=== PATIENT | male | born 1945 | race Caucasian/White ===

== ENCOUNTER → 2019-01-03 | Outpatient (CLI) | payer OTHER ==
[~2019-01-03] MED LIST: ALBU90OI INH; AMIT50; AMLO10 PO; AMLODIPINE PO; ASCO500 PO; ATOR10 PO; ATOR20 PO; AZIT250 PO; B Complex1 EAC2 PO; BUPR150ER PO; BUSP10 PO; BUSP15 PO; CALCAVITD PO; CLON.1 PO; CLON.5 PO; CLON1 PO; DOC250 PO; DULO60 PO; Desyrel150 MG PO; ESCI10 PO; FERR325 PO; FOLI1 PO; GLIM4 PO; HYDACE5 PO; HYDCHL12.5 PO; HYDHCL25 PO; IBUP200 PO; Juven1 EACH PO; LEVO750 PO; LISI5 PO; MAGCIT300 PO; METF500 PO; METO25ER PO; MIRT30 PO; MUPI2TO TOP; NAPR500 PO; NAPROXEN; OMEP20ER PO; OMEPRAZOLE20 MG PO; Prinivil10 MG PO; RANI150 PO; RISP2 PO; ROPI1 PO; Ropinirole HCl1 MG PO; TAMS.4ER PO; THIA100 PO; TRAZ50 PO; Trazodone HCl300 MG PO; ZINC220 PO; [UNRECOGNIZED DRUG - REMARK]
[2019-01-04 10:30] LABS: Adenovirus F 40/41 Not Detected (NOT DETECT); Astrovirus Not Detected (NOT DETECT); Campylobacter Sp Not Detected (NOT DETECT); Cryptosporidium Not Detected (NOT DETECT); Cyclospora Cayetanensis Not Detected (NOT DETECT); E. Coli O157 Not Detected (NOT DETECT); Entamoeba Histolytica Not Detected (NOT DETECT); Enteroaggregative E. coli-EAEC Not Detected (NOT DETECT); Enteropathogenic E. coli-EPEC Not Detected (NOT DETECT); Enterotoxigenic E. coli-ETEC Not Detected (NOT DETECT); Giardia Lamblia Not Detected (NOT DETECT); Norovirus GI/GII Not Detected (NOT DETECT); Plesiomonas Shigelloides Not Detected (NOT DETECT); Rotavirus A Not Detected (NOT DETECT); Salmonella Sp Not Detected (NOT DETECT); Sapovirus Not Detected (NOT DETECT); Shiga Toxin-prod E. coli-STEC Not Detected (NOT DETECT); Shigella/Enteroin E. coli-EIEC Not Detected (NOT DETECT); Vibrio Cholerae Not Detected (NOT DETECT); Vibrio Sp Not Detected (NOT DETECT); Yersinia Enterocolitica Not Detected (NOT DETECT)
== END ==
LOC: LAB 12:00 → LAB SHORT 12:00
PROVIDERS: Internal Medicine Gastroenterology
DX: R19.7 Diarrhea, unspecified (principal)
CPT/HCPCS: 87507

== ENCOUNTER 2019-01-08 08:03 | Day surgery (SDC) | payer OTHER ==
[~2019-01-08] VITALS: Ht 167.6 cm; Wt 90.1 kg
[~2019-01-08 08:03] MED LIST changes: -BUPR150ER PO; -CLON.5 PO; -ESCI10 PO; -OMEPRAZOLE20 MG PO; -Prinivil10 MG PO; -Ropinirole HCl1 MG PO; -Trazodone HCl300 MG PO
--- NOTE | 2019-01-08 08:46 | NUR ---
Ambulatory in Day Surgery History, Chart, Medications and Allergies reviewed before start of procedure.PT IS POOR HISTORIAN.Lungs clear T/O to Auscultation. Patient confirms NPO status and agrees with scheduled surgery. Patient States Post-Procedure ride home has been arranged.[id number]. 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
--- NOTE | 2019-01-08 09:50 | NUR ---
01/08/19 0924 Ellie Flores History, Chart, Medications and Allergies reviewed before start of procedure.PATIENT DETERMINED TO BE ASA APPROPRIATE FOR PROPOFOL SEDATION PRIOR TO START OF PROCEDURE BY .MONITOR INTACT WITH CONTINUOUS PULSE OXIMETRY AND INTERMITTENT BP.3-LEAD EKG REVIEWED WITH PHYSICIAN PRIOR TO START OF PROCEDURE.O2 VIA N/C INTACT THROUGHOUT SEDATION/PROCEDURE.
--- NOTE | 2019-01-08 10:33 | NUR ---
Discharge instructions reviewed with patient. Patient verbalizes understanding. Copy given to patient to take home. Patient States Post-Procedure ride home has been arranged. Discharged via wheelchair to private car for ride home.
[2019-03-29] MEDS ORDERED: BUPR150ER PO (10:28)
[2019-03-29] MEDS ORDERED: OMEPRAZOLE20 MG PO (10:30)
[2019-03-29] MEDS ORDERED: Ropinirole HCl1 MG PO (10:30)
[2019-03-29] MEDS ORDERED: Prinivil10 MG PO (10:31)
[2019-03-29] MEDS ORDERED: Trazodone HCl300 MG PO (10:31)
[2019-03-29] MEDS ORDERED: GLIM4 PO (10:31)
[2019-03-29] MEDS ORDERED: TAMS.4ER PO (10:32)
[2019-03-29] MEDS ORDERED: METF500 PO (10:32)
[2019-03-29] MEDS ORDERED: CLON.5 PO (10:33)
[2019-03-29] MEDS ORDERED: ESCI10 PO (10:33)
== END 2019-01-08 23:25 | disposition home or self-care (01) ==
LOC: ORSCMMR 08:03 → ORD 09:00 → ORSCMMR 09:00
PROVIDERS: Internal Medicine Gastroenterology
PROC: 0DB48ZX Excision of Esophagogastric Junction, Via Natural or Artificial Opening Endoscopic, Diagnostic (ICD-10-PCS; principal; 2019-01-08 09:00)
PROC: 0DB98ZX Excision of Duodenum, Via Natural or Artificial Opening Endoscopic, Diagnostic (ICD-10-PCS; principal; 2019-01-08 09:00)
PROC: 0DB58ZX Excision of Esophagus, Via Natural or Artificial Opening Endoscopic, Diagnostic (ICD-10-PCS; principal; 2019-01-08 09:00)
PROC: 0DB68ZX Excision of Stomach, Via Natural or Artificial Opening Endoscopic, Diagnostic (ICD-10-PCS; principal; 2019-01-08 09:00)
DX: R11.2 Nausea with vomiting, unspecified (principal); R19.7 Diarrhea, unspecified; K21.0 Gastro-esophageal reflux disease with esophagitis; E11.9 Type 2 diabetes mellitus without complications; I10 Essential (primary) hypertension; F32.9 Major depressive disorder, single episode, unspecified
CPT/HCPCS: 82947; 88305; 88342; J2704; J7120; J7799

== ENCOUNTER 2019-04-02 08:06 | Day surgery (SDC) | payer OTHER ==
[~2019-04-02] VITALS: Ht 167.6 cm; Wt 90.9 kg
[~2019-04-02 08:06] MED LIST changes: +BUPR150ER PO; +CLON.5 PO; +ESCI10 PO; +OMEPRAZOLE20 MG PO; +Prinivil10 MG PO; +Ropinirole HCl1 MG PO; +Trazodone HCl300 MG PO
--- NOTE | 2019-04-02 09:04 | NUR ---
04/02/19 0903 Riky Oakes PATIENT DETERMINED TO BE ASA APPROPRIATE FOR PROPOFOL SEDATION PRIOR TO START OF PROCEDURE BY 3-LEAD EKG REVIEWED WITH PHYSICIAN PRIOR TO START OF PROCEDURE.Patient to ENDO 1History, Chart, Medications and Allergies reviewed before start of procedure.MONITOR INTACT WITH CONTINUOUS PULSE OXIMETRY AND INTERMITTENT BP.O2 VIA N/C INTACT THROUGHOUT SEDATION/PROCEDURE.
--- NOTE | 2019-04-02 10:19 | NUR ---
Discharge instructions reviewed with patient. Patient verbalizes understanding. Copy given to patient to take home. Discharged via wheelchair to private car for ride home.
== END 2019-04-02 22:49 | disposition home or self-care (01) ==
LOC: ORSCMMR 08:06 → ORD 09:00 → ORSCMMR 22:49
PROVIDERS: Internal Medicine Gastroenterology
PROC: 0DBH8ZX Excision of Cecum, Via Natural or Artificial Opening Endoscopic, Diagnostic (ICD-10-PCS; principal; 2019-04-02 09:00)
PROC: 0DBE8ZX Excision of Large Intestine, Via Natural or Artificial Opening Endoscopic, Diagnostic (ICD-10-PCS; principal; 2019-04-02 09:00)
DX: R19.7 Diarrhea, unspecified (principal); Z86.010 Personal history of colon polyps; D12.0 Benign neoplasm of cecum; K57.30 Diverticulosis of large intestine without perforation or abscess without bleeding; C91.90 Lymphoid leukemia, unspecified not having achieved remission; K21.9 Gastro-esophageal reflux disease without esophagitis; Z79.899 Other long term (current) drug therapy; Z87.891 Personal history of nicotine dependence
CPT/HCPCS: 82947; 88305; J2704; J7120

== ENCOUNTER → 2020-05-04 | Outpatient (CLI) | payer OTHER | LOC: LAB SHORT 08:06 | DX: B35.1 Tinea unguium (principal); L60.2 Onychogryphosis | CPT/HCPCS: 88304 ==

== ENCOUNTER 2021-01-03 16:10 | Emergency (ER) | payer OTHER ==
[~2021-01-03] VITALS: Ht 167.6 cm; Wt 106.1 kg
== END 2021-01-03 16:39 | disposition home or self-care (01) ==
LOC: ER 16:10
DX: S00.03XA Contusion of scalp, initial encounter (principal); I10 Essential (primary) hypertension; F17.220 Nicotine dependence, chewing tobacco, uncomplicated; Z79.899 Other long term (current) drug therapy; W18.30XA Fall on same level, unspecified, initial encounter
CPT/HCPCS: 99283

== ENCOUNTER → 2021-05-05 | Outpatient (CLI) | payer OTHER ==
[2021-05-05 17:38] LABS: Appearance, Urine Clear (Clear); Bilirubin, Urine Neg (Neg); Blood, Urine Neg (Neg); Color, Urine Yellow (P-Yellow); Glucose Qualitative, Urine 4+ (Neg); Ketones, Urine Neg (Neg); Leukocyte Esterase, Urine Neg (Neg); Nitrite, Urine Neg (Neg); Protein, Urine Neg (Neg); Urobilinogen, Urine NORM (Normal)
== END ==
LOC: LAB SHORT 15:10 → LAB 15:10
PROVIDERS: Physician Assistant Medical
DX: N39.0 Urinary tract infection, site not specified (principal)
CPT/HCPCS: 81003

== ENCOUNTER → 2021-06-21 | Outpatient (CLI) | payer OTHER ==
[2021-06-21 20:03] LABS: Microalb/Creat Ratio UR, Rand 50.992 mg/g (0.000-30.000); Microalbumin, Random Urine 61.7 mg/L (0.000-20.000)
== END ==
LOC: LAB SHORT 16:58
PROVIDERS: Family Medicine
DX: E11.311 Type 2 diabetes mellitus with unspecified diabetic retinopathy with macular edema (principal)
CPT/HCPCS: 82043; 82570

== ENCOUNTER → 2022-03-17 | Outpatient (CLI) | payer OTHER ==
[2022-03-17 15:27] LABS: Appearance, Urine Clear (Clear); Bilirubin, Urine Neg (Neg); Blood, Urine Neg (Neg); Color, Urine Yellow (P-Yellow); Glucose Qualitative, Urine 4+ (Neg); Ketones, Urine Neg (Neg); Leukocyte Esterase, Urine Neg (Neg); Nitrite, Urine Neg (Neg); Protein, Urine Neg (Neg); Urobilinogen, Urine NORM (Normal)
== END | disposition home or self-care (01) ==
LOC: LAB SHORT 13:50 → LAB 13:50
PROVIDERS: Family Medicine
DX: N39.0 Urinary tract infection, site not specified (principal)
CPT/HCPCS: 81003

== ENCOUNTER → 2022-05-25 | Outpatient (CLI) | payer OTHER ==
[2022-05-25 12:02] LABS: Source, Urine Voided
[2022-05-25 12:17] LABS: Appearance, Urine Clear (Clear); Bilirubin, Urine Neg (Neg); Blood, Urine Neg (Neg); Color, Urine Yellow (P-Yellow); Glucose Qualitative, Urine 4+ (Neg); Ketones, Urine Neg (Neg); Leukocyte Esterase, Urine Neg (Neg); Nitrite, Urine Neg (Neg); Protein, Urine Neg (Neg); Specific Gravity, Urine 1.015 (1.003-1.022); Urobilinogen, Urine NORM (Normal)
== END ==
LOC: RAD SHORT 10:50 → LAB 10:50
PROVIDERS: Family Medicine
DX: R15.9 Full incontinence of feces (principal); N39.0 Urinary tract infection, site not specified
CPT/HCPCS: 81003

== ENCOUNTER → 2022-11-16 | Outpatient (CLI) | payer OTHER ==
[2022-11-16 15:14] LABS: BASOPHILS ABSOLUTE AUTO 0.07 K/mm3 (0.00-0.23); BASOPHILS PERCENT AUTO 1 % (0-2); EOSINOPHILS ABSOLUTE AUTO 0.33 K/mm3 (0.00-0.68); EOSINOPHILS PERCENT AUTO 4 % (0-6); Hematocrit 39.3 % (37.0-53.0); Hemoglobin 12.3 g/dL (13.5-17.5); IMMATURE GRAN ABSOLUTE AUTO 0.19 K/mm3 (0.00-0.10); IMMATURE GRAN PERCENT AUTO 2 % (0-1); LYMPHOCYTES ABSOLUTE AUTO 1.88 K/mm3 (0.84-5.20); LYMPHOCYTES PERCENT AUTO 22 % (21-46); MONOCYTES ABSOLUTE AUTO 0.86 K/mm3 (0.16-1.47); MONOCYTES PERCENT AUTO 10 % (4-13); Mean Corpuscular HGB 25.8 pg (26.0-34.0); Mean Corpuscular HGB Conc 31.3 g/dL (31.5-36.5); Mean Corpuscular Volume 83 fL (80-100); Mean Platelet Volume 10.2 fL (9.1-12.4); NEUTROPHILS ABSOLUTE AUTO 5.07 K/mm3 (1.96-9.15); NEUTROPHILS PERCENT AUTO 60 % (41-73); Platelet Count 337 K/mm3 (150-400); RDW Coefficient Variation 15.5 % (11.7-14.2); RDW Standard Deviation 46.8 fL (35.1-46.3); Red Blood Cell Count 4.76 M/mm3 (4.30-5.90)
[2022-11-16 16:32] LABS: Albumin, Blood 3.3 g/dL (3.4-5.0); Bilirubin, Total 0.1 mg/dL (0.1-1.0); Bun/Creatinine Ratio 19.1 (12.0-20.0); Calcium, Blood 9.3 mg/dL (8.5-10.1); Creatinine, Blood 1.41 mg/dL (0.60-1.20); Globulin, Blood 3.3 g/dL (2.2-4.0); Potassium, Blood 4.5 mmol/L (3.5-5.5); Total Protein, Blood 6.6 g/dL (6.4-8.2)
== END | disposition home or self-care (01) ==
LOC: LAB 14:41 → LAB SHORT 14:41
PROVIDERS: Internal Medicine Hematology & Oncology
DX: C82.00 Follicular lymphoma grade I, unspecified site (principal)
CPT/HCPCS: 80053; 85025

== ENCOUNTER 2022-11-30 15:28 | Inpatient (IN) | payer OTHER ==
[~2022-11-30] VITALS: Ht 167.6 cm; Wt 94.0 kg
[2022-11-30] MEDS ORDERED: ATOR10 PO (15:53)
[2022-11-30] MEDS ORDERED: GLIM4 PO (15:53)
[2022-11-30] MEDS ORDERED: FERSU300 PO (15:54)
[2022-11-30] MEDS ORDERED: CLON.5 PO (15:54)
[2022-11-30] MEDS ORDERED: TAMS.4ER PO (15:54)
[2022-11-30] MEDS ORDERED: ONDA4 PO (15:54)
[2022-11-30] MEDS ORDERED: BUPR150ER PO (15:54)
[2022-11-30] MEDS ORDERED: METO25ER PO (15:55)
[2022-11-30] MEDS ORDERED: TRAZ150T57 PO (15:55)
[2022-11-30] MEDS ORDERED: Prinivil10 MG PO (15:55)
[2022-11-30] MEDS ORDERED: AMLO10 PO (15:55)
[2022-11-30] MEDS ORDERED: METF500C PO (15:55)
[2022-11-30] MEDS ORDERED: ROPI1 PO (15:56)
[2022-11-30 16:05] LABS: BASOPHILS ABSOLUTE AUTO 0.03 K/mm3 (0.00-0.23); BASOPHILS PERCENT AUTO 0 % (0-2); EOSINOPHILS ABSOLUTE AUTO 0.19 K/mm3 (0.00-0.68); EOSINOPHILS PERCENT AUTO 2 % (0-6); Hematocrit 40.7 % (37.0-53.0); Hemoglobin 12.7 g/dL (13.5-17.5); IMMATURE GRAN ABSOLUTE AUTO 0.14 K/mm3 (0.00-0.10); IMMATURE GRAN PERCENT AUTO 2 % (0-1); LYMPHOCYTES ABSOLUTE AUTO 1.35 K/mm3 (0.84-5.20); LYMPHOCYTES PERCENT AUTO 16 % (21-46); MONOCYTES ABSOLUTE AUTO 1.02 K/mm3 (0.16-1.47); MONOCYTES PERCENT AUTO 12 % (4-13); Mean Corpuscular HGB 25.7 pg (26.0-34.0); Mean Corpuscular HGB Conc 31.2 g/dL (31.5-36.5); Mean Corpuscular Volume 82 fL (80-100); Mean Platelet Volume 10.6 fL (9.1-12.4); NEUTROPHILS ABSOLUTE AUTO 5.96 K/mm3 (1.96-9.15); NEUTROPHILS PERCENT AUTO 69 % (41-73); Platelet Count 266 K/mm3 (150-400); RDW Coefficient Variation 15.8 % (11.7-14.2); RDW Standard Deviation 47.7 fL (35.1-46.3); Red Blood Cell Count 4.95 M/mm3 (4.30-5.90); White Blood Cell Count 8.69 K/mm3 (4.00-11.30)
[2022-11-30 16:19] LABS: Alanine Aminotransfer (ALT/SGP 22 U/L (12-78); Albumin, Blood 3.2 g/dL (3.4-5.0); Albumin/Globulin Ratio 0.9 (0.8-1.8); Alk Phos 103 U/L (50-136); Anion Gap 3 mmol/L (6-16); Aspartate Aminotrans (AST/SGOT 18 U/L (12-37); Bilirubin, Total <0.1 mg/dL (0.1-1.0); Blood Urea Nitrogen 29 mg/dL (8-24); Bun/Creatinine Ratio 16.1 (12.0-20.0); CO2, Blood 29 mmol/L (21-32); Calcium, Blood 9.1 mg/dL (8.5-10.1); Chloride, Blood 104 mmol/L (98-108); Globulin, Blood 3.7 g/dL (2.2-4.0); Glomerular Filtration Rate 39 (60-); Glucose, Blood 144 mg/dL (70-99); Potassium, Blood 3.9 mmol/L (3.5-5.5); Sodium, Blood 136 mmol/L (136-145); Total Protein, Blood 6.9 g/dL (6.4-8.2)
[2022-11-30 17:01] LABS: Magnesium, Blood 2.2 mg/dL (1.6-2.4); Uric Acid, Blood 6.8 mg/dL (3.5-7.2)
[2022-11-30 18:21] LABS: Influenza A, PCR NEGATIVE (NEGATIVE); Influenza B, PCR NEGATIVE (NEGATIVE); Resp Syncytial Virus, PCR NEGATIVE (NEGATIVE)
[2022-11-30 19:55] LABS: SARS-Cov-2 (COVID-19) PCR, MMC POSITIVE (NEGATIVE)
[2022-11-30] MEDS ORDERED: ABILIFY MYCITE5 M1 PO (20:09)
[2022-11-30] MEDS ORDERED: HYDCHL25 PO (20:10)
[2022-11-30] MEDS ORDERED: VENL150ER PO (20:10)
[2022-11-30] MEDS ORDERED: GLIP10 PO (20:10)
[2022-11-30] MEDS ORDERED: JARDIANCE25 MG PO (20:10)
[2022-11-30 20:52] VITALS: BP 128/71
[2022-11-30 20:57] LABS: U Amphetamine Screen Not Detected; U Barbituate Screen Not Detected; U Benzodiazapine Screen Not Detected; U Cocaine Screen Not Detected; U Methadone Screen Not Detected; U Methamphetamine Screen Not Detected; U Opiates Screen DETECTED; U Phencyclidine Screen Not Detected
[2022-11-30 20:58] LABS: U Buprenorphine Screen Not Detected; U Cannabinoids Screen Not Detected; U Oxycodone Screen Not Detected; U Propoxyphene Screen Not Detected
[2022-11-30 21:08] LABS: Adenovirus Not Detected (NOT DETECT); Bordetella pertussis Not Detected (NOT DETECT); Chlamydophila pneumoniae Not Detected (NOT DETECT); Coronavirus 229E Not Detected (NOT DETECT); Coronavirus HKU1 Not Detected (NOT DETECT); Coronavirus NL63 Not Detected (NOT DETECT); Coronavirus OC43 Not Detected (NOT DETECT); Human Metapneumovirus Not Detected (NOT DETECT); Human Rhinovirus/Enterovirus Not Detected (NOT DETECT); Influenza A/2009-H1 Not Detected (NOT DETECT); Influenza A/H1 Not Detected (NOT DETECT); Influenza A/H3 Not Detected (NOT DETECT); Influenza B Not Detected (NOT DETECT); Mycoplasma pneumoniae Not Detected (NOT DETECT); Parainfluenza Virus 1 Not Detected (NOT DETECT); Parainfluenza Virus 2 Not Detected (NOT DETECT); Parainfluenza Virus 3 Not Detected (NOT DETECT); Parainfluenza Virus 4 Not Detected (NOT DETECT); Respiratory Syncytial Virus Not Detected (NOT DETECT); SARS-Cov-2 (COVID-19), BioFire Not Detected (NOT DETECT)
[2022-12-01 04:27] VITALS: BP 134/73
--- NOTE | 2022-12-01 04:38 | NUR ---
SHIFT SUMMARY ADMITTED FROM ER THIS SHIFT FOR ACUTE RESPIRATORY FAILURE. FULL CODE. COVID+. HANDOFF RECEIVED FROM TAX REPRESENTATIVEGIOVANNA ALBRIGHT. PT ARRIVED TO FLOOR VIA GURNEY. PERSONAL POSSESSIONS WITH PT. ER DID SEND UP ANOTHER BELONGINGS BAG OF PERSONAL BELONGINGS LATER AFTER PT ARRIVED TO FLOOR. PT ORIENTED TO UNIT. CALL BUTTON IN REACH. REMDESIVIR AND DECADRON GIVEN ORDERED. PT IS ON 3 LPM O2 HERE, RA @ [facility] WHERE HE LIVES. HE IS INCONTINENT/CONTINENT. ADA DIET. AC CBG'S. HX OF PROSTATE NEOPLASM, CLL, RIGHT BRAIN MASS - OUTPT TX AT [facility]. HE HAS BEEN ABLE TO MAKE HIS NEEDS KNOWN TO US.
[2022-12-01 05:03] LABS: BASOPHILS ABSOLUTE AUTO 0.02 K/mm3 (0.00-0.23); BASOPHILS PERCENT AUTO 0 % (0-2); EOSINOPHILS ABSOLUTE AUTO 0.01 K/mm3 (0.00-0.68); EOSINOPHILS PERCENT AUTO 0 % (0-6); Hematocrit 37.5 % (37.0-53.0); Hemoglobin 11.8 g/dL (13.5-17.5); IMMATURE GRAN ABSOLUTE AUTO 0.12 K/mm3 (0.00-0.10); IMMATURE GRAN PERCENT AUTO 2 % (0-1); LYMPHOCYTES ABSOLUTE AUTO 0.94 K/mm3 (0.84-5.20); LYMPHOCYTES PERCENT AUTO 15 % (21-46); MONOCYTES ABSOLUTE AUTO 0.22 K/mm3 (0.16-1.47); MONOCYTES PERCENT AUTO 4 % (4-13); Mean Corpuscular HGB 25.8 pg (26.0-34.0); Mean Corpuscular HGB Conc 31.5 g/dL (31.5-36.5); Mean Corpuscular Volume 82 fL (80-100); Mean Platelet Volume 10.5 fL (9.1-12.4); NEUTROPHILS ABSOLUTE AUTO 4.79 K/mm3 (1.96-9.15); NEUTROPHILS PERCENT AUTO 79 % (41-73); Platelet Count 231 K/mm3 (150-400); RDW Coefficient Variation 15.7 % (11.7-14.2); RDW Standard Deviation 47.1 fL (35.1-46.3); Red Blood Cell Count 4.58 M/mm3 (4.30-5.90)
[2022-12-01 05:59] LABS: Albumin, Blood 2.8 g/dL (3.4-5.0); Albumin/Globulin Ratio 0.9 (0.8-1.8); Bilirubin, Total 0.4 mg/dL (0.1-1.0); Bun/Creatinine Ratio 19.2 (12.0-20.0); Calcium, Blood 8.4 mg/dL (8.5-10.1); Creatinine, Blood 1.46 mg/dL (0.60-1.20); Globulin, Blood 3.1 g/dL (2.2-4.0); Magnesium, Blood 2.1 mg/dL (1.6-2.4); Potassium, Blood 4.9 mmol/L (3.5-5.5); Total Protein, Blood 5.9 g/dL (6.4-8.2)
[2022-12-01 07:53] VITALS: BP 136/85
[2022-12-01 15:57] VITALS: BP 125/76
--- NOTE | 2022-12-01 17:02 | NUR ---
SUMMARY- PT A/O X3, DOES NOT REMEMBER DETAILS OF HIS MED HISTORY. PT USES URINAL INDEPENDANT, STANDS AT EDGE OF BED. SBA TO CHAIR FOR MEALS. TOLERATING FOOD ANF FLUID. PT HAS CRACKLES IN BASES, OCC COUGH. STARTED ON GUIAFENASIN AND COUGH PEARLS. USUS OXYGEN 3L PLACED MISTED FOR DRY NOSE. SATS MID 90'5. ENC COUGH AND DEEP BREATH. GAVE REPORT TO SHERWIN BENTON. WILL REPORT TO ABIGAIL HEREDIA. -
[2022-12-01 19:13] VITALS: BP 131/68
--- NOTE | 2022-12-02 04:28 | NUR ---
SHIFT SUMMARY PATIENT "TOE" ADMIT FOR ACUTE RESPIRATORY FAILURE. COVID+. ADA DIET. AC CBG'S. RECIEVED IV REMDESIVIR X1 DURING NIGHT. STANDBY ASSIST X1 TO BEDSIDE COMMODE AND CHAIR. COMPLAINTS OF WEAKNESS. HR 78 BP 131/68. HX: CANCER, SLEEP APNEA. PLEASANT AND A&O X4 WHEN AWAKE. STARTLES EASILY. CONTINENT TO URINAL W/OCCASIONAL INCONTINENCE. SLEPT WELL MOST OF NIGHT. IV IN LEFT FOREARM.
--- NOTE | 2022-12-02 04:54 | NUR ---
CTA NOTE SHIFT SUMMARY LOCATED IN OPTOMETRIC TECHNICIAN NOTE. I HAVE READ HER DOCUMENTATION ON THIS PT AND I AGREE WITH HER CHARTING
[2022-12-02 05:26] VITALS: BP 143/81
[2022-12-02 07:17] VITALS: BP 115/73
[2022-12-02 14:53] VITALS: BP 126/75
--- NOTE | 2022-12-02 19:31 | NUR ---
SPOKE TO DR SAMUEL. PT REQUEST DNR. HE PLACED, BUT DIDNT SHOW. PLACED DNR. ALSO PT ANX. OKAYED 0.5 MG KLONOPIN. DAILY PRN. DONE
--- NOTE | 2022-12-02 19:47 | NUR ---
PT QUITE PLEASNT TODAY. 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 PRESENTS QUITE ANX THIS AFT. SPOKE TO DR ABOUT CODE STATUS CHANGED TO DNR. ALSO ORDERS FOR ANX MED GIVEN AND GIVEN TO PT. PT STATES NOT SURE WHY HERE. TOLD HIM. BUT HE FORGOT 2 HRS LATER. HE IS REFUSING HIS INSULIN. STATES WANTS TO GO HOME. ADVISED HIM THE GOAL IS WE NEED TO GET HIM BETTER FROM THE COVID/ HE SEEMS TO UNDERSTAND, THEN FORGETS/. NO NEW CONCERNS NOTED. BED IN LOW POSITION, CALL LITE IN REACH.
[2022-12-03 02:39] VITALS: BP 133/73
[2022-12-03 07:31] VITALS: BP 147/74
[2022-12-03 15:02] VITALS: BP 147/78
--- NOTE | 2022-12-03 19:54 | NUR ---
SHIFT SUMMARY ISOLATION PRECAUTIONS FOR COVID IN PLACE. PTN REFUSING INSULIN, DR SAMUEL NOTIFIED, ORDER TO DISCONTINUE BLOOD SUGAR CHECKS AND INSULIN. PTN WITH ANXIETY, ORDER TO INCREASE SCHEDULE OF MEDICATION FOR SAME. PTN LIKELY TO D/C BACK TO [facility].
[2022-12-03 20:17] VITALS: BP 123/78
[2022-12-04 03:17] VITALS: BP 143/78
[2022-12-04 07:51] VITALS: BP 150/87
[2022-12-04 14:55] VITALS: BP 130/69
--- NOTE | 2022-12-04 17:40 | NUR ---
SHIFT SUMARY: PT A&O X3-4. PT PLEASANT AND COOPERATIVE WITH ALL CARE. NO ACUTE CHANGES THIS SHIFT. PT INDEPENDENT IN ROOM. PT DEPRESSED THIS SHIFT TALKING ABOUT CANCER AND HOSPICE. PT TO POSSIBLY D/C TOMORROW ON HOSPICE. IV LEAKING WITH MORNING ASSESSMENT. NO IV ORDER IN PLACE. PT RECEIVED KLONOPINE WITH AM MEDICATIONS FOR ANXIETY. PT HAD INCONTINENT VOID THIS SHIFT. CALL LIGHT IN REACH. BED IN LOWEST POSITION. WILL CONTINUE TO MONITOR.
[2022-12-04 20:05] VITALS: BP 140/75
[2022-12-05 07:18] VITALS: BP 136/79
[2022-12-05 14:43] VITALS: BP 147/81
--- NOTE | 2022-12-05 18:25 | NUR ---
SHIFT SUMMARY PATIENT IS ALERT AND ORIENTED X3. PATIENT HAS HAD NO ACUTE EVENTS THIS SHIFT. VITAL SIGNS REVIEWED. PATIENT HAS HAD ANXIETY THIS SHIFT. MEDICATED PER EMAR FOR ANXIETY. PATIENT HAS HAD NO EVENTS OF PAIN, NAUSEA, SOB OR VOMITTING THIS SHIFT. PATIENT IS PLANNING ON DISCHARGING BACK TO FACILITY ON HOSPICE TOMMORROW. BED IN LOCKED AND LOWEST POSITION.
[2022-12-05 20:34] VITALS: BP 132/75
[2022-12-06 04:30] VITALS: BP 150/78
--- NOTE | 2022-12-06 05:05 | NUR ---
PT ANXIOUS AT START OF SHIFT, SCHEDULED MEDS WERE EFFECTIVE, SLEPT MOST OF SHIFT WITH NO MORE COMPLAINTS OF ANXIETY. VSS, PLEASANT, AO, NO SIGNIFICANT CHANGES NOTED.
[2022-12-06 07:18] VITALS: BP 137/80
--- NOTE | 2022-12-06 10:08 | NUR ---
DISCHARGE HOME TO [place]. [facility] PRESENT FOR TRANSPORT. NO IV. NO TELE TOLERATING PO INTAKE WELL. RA. VSS. COVID +
== END 2022-12-06 10:19 | disposition hospice, home (50) | DRG 177 ==
LOC: ER 15:28 → MEDS 20:12
PROVIDERS: Emergency Medicine; Nurse Practitioner Acute Care; ADMIT Internal Medicine
PROC: XW033E5 Introduction of Remdesivir Anti-infective into Peripheral Vein, Percutaneous Approach, New Technology Group 5 (ICD-10-PCS; principal; 2022-11-30)
PROC: 3E0DX3Z Introduction of Anti-inflammatory into Mouth and Pharynx, External Approach (ICD-10-PCS; 2022-11-30)
PROC: 8E0ZXY6 Isolation (ICD-10-PCS; 2022-11-30)
DX: U07.1 COVID-19 (principal); J96.01 Acute respiratory failure with hypoxia; C82.90 Follicular lymphoma, unspecified, unspecified site; C91.10 Chronic lymphocytic leukemia of B-cell type not having achieved remission; D84.9 Immunodeficiency, unspecified; N17.9 Acute kidney failure, unspecified; N18.30 Chronic kidney disease, stage 3 unspecified; E11.22 Type 2 diabetes mellitus with diabetic chronic kidney disease; Z51.5 Encounter for palliative care; Z66 Do not resuscitate; I12.9 Hypertensive chronic kidney disease with stage 1 through stage 4 chronic kidney disease, or unspecified chronic kidney disease; G25.81 Restless legs syndrome; F32.A Depression, unspecified; M19.90 Unspecified osteoarthritis, unspecified site; G47.30 Sleep apnea, unspecified; E78.5 Hyperlipidemia, unspecified; F41.9 Anxiety disorder, unspecified; Z98.890 Other specified postprocedural states; Z87.19 Personal history of other diseases of the digestive system; Z79.02 Long term (current) use of antithrombotics/antiplatelets; Z79.899 Other long term (current) drug therapy; Z85.46 Personal history of malignant neoplasm of prostate; Z79.811 Long term (current) use of aromatase inhibitors; Z79.84 Long term (current) use of oral hypoglycemic drugs
CPT/HCPCS: 0202U; 0241U; 36415; 71045; 71260; 80053; 82947; 83735; 83880; 84100; 84145; 84484; 84550; 85025; 93005; 93010; 94760; 96365-59; 96366-59; 99285-25; A9270; J0248; J1650; J1956; J7030; J7050; J7060; J7120; Q9967